=== PATIENT | female | born 1940 | race Caucasian/White ===

== ENCOUNTER 2016-10-01 01:29 | Observation (INO) | payer MEDICARE, OTHER ==
[2016-10-01] VITALS (8 sets, daily range): BP systolic 100–144; BP diastolic 52–82; PULSE 52–88; RESP 16–18; TEMP 98.1–98.5; O2SAT 95–98
[~2016-10-01 01:29] MED LIST: BACL10TA PO; CEFU250T PO; DIFL150T PO; DIPH25TA; LEVO25TA4 PO; LORA-373 PO; MORP1TAB25 PO; NULE0.12 SL; VITA400C28
[2016-10-01] MEDS ORDERED: LEVO75TA3 PO (02:07)
[2016-10-01] MEDS ORDERED: MORP15IN4 (02:07)
[2016-10-01] MEDS ORDERED: LORA1TAB12 PO (02:07)
[2016-10-01] MEDS ORDERED: ONDA1TAB16 (02:07)
[2016-10-01] MEDS ORDERED: NITR0.4S SL (02:07)
[2016-10-01] MEDS ORDERED: RABE1TAB PO (02:08)
[2016-10-01] MEDS ORDERED: DICY10CA12 PO (02:08)
--- NOTE | 2016-10-01 02:13 | PD ---
HPI Chief Complaint: Chest Pain Time Seen by Provider: 01:49 Travel History International Travel<30 days: No Contact w/Intl Traveler<30days: No Traveled to known affect area: No History of Present Illness HPI Patient is a 75-year-old female with history of hyperlipidemia, CHF, [place] 4, hyperlipidemia, chronic back pain, who presents to emergency room for evaluation of chest pain. Patient reports that for the past month, she has been having intermittent chest pain. Patient reports that she noticed this chest pain worse when she is getting radiating to sleep. Patient reports that chest pain is located her left chest, reports that she feels a "thumping sensation" to her left chest, reports that she feels diaphoresis, shortness of breath, symptoms last for a few seconds and then resolve on its own. Patient reports that she has noticed symptoms more frequently tonight, reports that she became concerned as she then began having increased pains to her left shoulder. Reports that she has had history of heart attacks in the past while she was in [place] and had balloon angioplasty, reports that she was concerned that she was having a heart attack today. Patient did call a directory compiler, Dr. Silva for a new patient visit - reports that she cannot be seen until October. Patient at this time reports no chest pain. Patient does report that for the past few days, she has had overall generalized weakness. Denies any fevers or chills. Denies any cough or congestion. No sick contacts. PFSH Past Medical History Cardiovascular Problems: Yes High Cholesterol: Yes Congestive Heart Failure: Yes GERD: Yes Genitourinary: Yes (UTI) Medical other: Yes (morphine pump) ?: Not Tubal Ligation: Yes Past Surgical History Appendectomy: Yes Cardiac Surgery: Yes (balloon plasty) Hysterectomy: Yes Other Surgery: Yes (rectoseal repair) Social History Alcohol Use: No Tobacco Use: No Substance Use: No Allergies-Medications (Allergen,Severity, Reaction): Coded Allergies: Amoxicillin (Verified Allergy, Unknown, 10/01/16) Aspirin (Verified Allergy, Unknown, 10/01/16) Codeine (Verified Allergy, Unknown, 10/01/16) Erythromycin (Verified Allergy, Unknown, 10/01/16) Keflex (Verified Allergy, Unknown, 10/01/16) Levofloxacin (Verified Allergy, Unknown, 10/01/16) Macrobid (Verified Allergy, Unknown, 10/01/16) Nonsteroidal Anti-Inflammatory Agts (Verified Allergy, Unknown, 10/01/16) Sulfa (Verified Allergy, Unknown, 10/01/16) Vancomycin (Verified Allergy, Unknown, 10/01/16) Reported Meds & Prescriptions Reported Meds & Active Scripts Active Reported Rabeprazole (Rabeprazole Sodium) 20 Mg Tab 20 Mg PO DAILY Dicyclomine (Dicyclomine HCl) 10 Mg Cap 10 Mg PO BID Nitrostat SL (Nitroglycerin) 0.4 Mg Subl 0.4 Mg SL DIRECTED PRN 1 tablet under the tongue as needed for chest pain. Repeat every 5 minutes for a total of 3 DOSES or call 911 if NO relief. Ondansetron (Ondansetron HCl) 4 Mg Tab Morphine Sulfate 15 Mg/Ml Inj Levothyroxine (Levothyroxine Sodium) 75 Mcg Tab 75 Mcg PO DAILY Lorazepam 1 Mg Tab 1 Mg PO BID PRN Baclofen 10 Mg Tab 10 Mg PO Q8HR PRN Vitamin D (Cholecalciferol) 400 Unit Cap Cefuroxime (Cefuroxime Axetil) 250 Mg Tab 250 Mg PO BID Review of Systems General / Constitutional: No: Fever Eyes: No: Visual changes HENT: No: Headaches Cardiovascular: Positive: Chest Pain or Discomfort, Tachycardia, Diaphoresis Respiratory: Positive: Shortness of Breath Gastrointestinal: No: Abdominal Pain Genitourinary: No: Dysuria Musculoskeletal: No: Pain Skin: No Rash Neurologic: Positive: Weakness Psychiatric: No: Depression Endocrine: No: Polydipsia Hematologic/Lymphatic: No: Easy Bruising Physical Exam Narrative GENERAL: Mild distress SKIN: Focused skin assessment warm/dry. HEAD: Atraumatic. Normocephalic. EYES: Pupils equal and round. No scleral icterus. No injection or drainage. ENT: No nasal bleeding or discharge. Mucous membranes pink and moist. NECK: Trachea midline. No JVD. CARDIOVASCULAR: Regular rate and rhythm. No murmur appreciated. RESPIRATORY: No accessory muscle use. Clear to auscultation. Breath sounds equal bilaterally. GASTROINTESTINAL: Abdomen soft, non-tender, nondistended. Hepatic and splenic margins not palpable. MUSCULOSKELETAL: No obvious deformities. No clubbing. No cyanosis. No edema. NEUROLOGICAL: Awake and alert. No obvious cranial nerve deficits. Motor grossly within normal limits. Normal speech. PSYCHIATRIC: Anxious mood Data Data Last Documented VS Vital Signs Date Time Temp Pulse Resp B/P Pulse Ox O2 Delivery O2 Flow Rate FiO2 10/01/16 01:32 98.5 88 16 144/82 98 Orders B-Type Natriuretic Peptide (10/01/16 02:03) Ckmb (Isoenzyme) Profile (10/01/16 02:03) Complete Blood Count With Diff (10/01/16 02:03) Comprehensive Metabolic Panel (10/01/16 02:03) Magnesium (Mg) (10/01/16 02:03) Prothrombin Time / Inr (Pt) (10/01/16 02:03) Act Partial Throm Time (Ptt) (10/01/16 02:03) Troponin I (10/01/16 02:03) Lipase (10/01/16 02:03) Chest, Single Ap (10/01/16 02:03) Ecg Monitoring (10/01/16 02:03) Iv Access Insert/Monitor (10/01/16 02:03) Oximetry (10/01/16 02:03) Sodium Chloride 0.9% Flush (Ns Flush) (10/01/16 02:15) Admit Order (Ed Use Only) (10/01/16 03:40) Activity Bed Rest With Brp (10/01/16 03:40) Vital Signs (Adult) Q4H (10/01/16 03:40) Cardiac Rhythm .As Directed (10/01/16 03:40) Notify Dr: Other .PRN (10/01/16 03:40) Notify Parameters (10/01/16 03:40) Resp Oxygen Nasal Cannula (10/01/16 ) Ckmb (Isoenzyme) Profile (10/01/16 05:10) Ckmb (Isoenzyme) Profile (10/01/16 08:10) Troponin I (10/01/16 05:10) Troponin I (10/01/16 08:10) Electrocardiogram (10/01/16 03:40) Electrocardiogram (10/01/16 06:40) ^ Obtain (10/01/16 03:40) Corporate Lawyer / Telemetry YECENIA.Q8H (10/01/16 03:40) Labs Laboratory Tests Test 10/01/16 02:10 White Blood Count 6.6 TH/MM3 Red Blood Count 4.43 MIL/MM3 Hemoglobin 14.3 GM/DL Hematocrit 41.8 % Mean Corpuscular Volume 94.3 FL Mean Corpuscular Hemoglobin 32.2 PG Mean Corpuscular Hemoglobin 34.2 % Concent Red Cell Distribution Width 12.0 % Platelet Count 132 TH/MM3 Mean Platelet Volume 8.2 FL Neutrophils (%) (Auto) 58.7 % Lymphocytes (%) (Auto) 29.9 % Monocytes (%) (Auto) 7.2 % Eosinophils (%) (Auto) 3.5 % Basophils (%) (Auto) 0.7 % Neutrophils # (Auto) 3.9 TH/MM3 Lymphocytes # (Auto) 2.0 TH/MM3 Monocytes # (Auto) 0.5 TH/MM3 Eosinophils # (Auto) 0.2 TH/MM3 Basophils # (Auto) 0.0 TH/MM3 CBC Comment DIFF FINAL Differential Comment Prothrombin Time 11.5 SEC Prothromb Time International 1.0 RATIO Ratio Activated Partial 26.5 SEC Thromboplast Time Sodium Level 142 MEQ/L Potassium Level 4.1 MEQ/L Chloride Level 107 MEQ/L Carbon Dioxide Level 25.3 MEQ/L Anion Gap 10 MEQ/L Blood Urea Nitrogen 17 MG/DL Creatinine 0.84 MG/DL Estimat Glomerular Filtration 66 ML/MIN Rate Random Glucose 130 MG/DL Calcium Level 9.0 MG/DL Magnesium Level 1.8 MG/DL Total Bilirubin 0.6 MG/DL Aspartate Amino Transf 32 U/L (AST/SGOT) Alanine Aminotransferase 24 U/L (ALT/SGPT) Alkaline Phosphatase 90 U/L Total Creatine Kinase 80 U/L Troponin I LESS THAN 0.02 NG/ML B-Type Natriuretic Peptide 94 PG/ML Total Protein 7.6 GM/DL Albumin 4.1 GM/DL Lipase 112 U/L [facility] Medical Decision Making Medical Screen Exam Complete: Yes Emergency Medical Condition: Yes Interpretation(s) EKG at 0150: NSR at 76bpm, qt/qtc: 373/403, no acute st or t wave changes Vital Signs Date Time Temp Pulse Resp B/P Pulse Ox O2 Delivery O2 Flow Rate FiO2 10/01/16 01:32 98.5 88 16 144/82 98 Differential Diagnosis ACS, arrhythmia, electrolyte abnormality, pneumothorax Narrative Course Patient is a 75-year-old female who presents to emergency room for evaluation of chest pain. Patient has been having intermittent chest pain for the past month, reports that symptoms are worsened night, she has had left-sided chest pain which feels like a "pounding to my chest" with associated shortness of breath, diaphoresis, pains to her left shoulder. Patient reports that symptoms only last for a few seconds and resolve on its own. Reports that she became concerned today as her blood pressure was elevated at 185/90 act her symptoms, except that these symptoms occurred twice tonight and try to follow-up with a directory compiler as outpatient but unable to get an appointment until October. Patient concerned as she has history of myocardial infarctions 4 in [place] in the past. Patient was placed on a cardiac catheterization technologist upon arrival to the emergency room. EKG obtained, patient with no acute ST or T-wave changes, lab work including cardiac enzymes and x-ray chest ordered. Patient with no chest pain at this time, plan to monitor patient. Laboratory Tests Test 10/01/16 02:10 White Blood Count 6.6 TH/MM3 (4.0-11.0) Red Blood Count 4.43 MIL/MM3 (4.00-5.30) Hemoglobin 14.3 GM/DL (11.6-15.3) Hematocrit 41.8 % (35.0-46.0) Mean Corpuscular Volume 94.3 FL (80.0-100.0) Mean Corpuscular Hemoglobin 32.2 PG (27.0-34.0) Mean Corpuscular Hemoglobin 34.2 % Concent (32.0-36.0) Red Cell Distribution Width 12.0 % (11.6-17.2) Platelet Count 132 TH/MM3 (150-450) Mean Platelet Volume 8.2 FL (7.0-11.0) Neutrophils (%) (Auto) 58.7 % (16.0-70.0) Lymphocytes (%) (Auto) 29.9 % (9.0-44.0) Monocytes (%) (Auto) 7.2 % (0.0-8.0) Eosinophils (%) (Auto) 3.5 % (0.0-4.0) Basophils (%) (Auto) 0.7 % (0.0-2.0) Neutrophils # (Auto) 3.9 TH/MM3 (1.8-7.7) Lymphocytes # (Auto) 2.0 TH/MM3 (1.0-4.8) Monocytes # (Auto) 0.5 TH/MM3 (0-0.9) Eosinophils # (Auto) 0.2 TH/MM3 (0-0.4) Basophils # (Auto) 0.0 TH/MM3 (0-0.2) CBC Comment DIFF FINAL Differential Comment Prothrombin Time 11.5 SEC (9.8-11.6) Prothromb Time International 1.0 RATIO Ratio Activated Partial 26.5 SEC Thromboplast Time (24.3-30.1) Sodium Level 142 MEQ/L (136-145) Potassium Level 4.1 MEQ/L (3.5-5.1) Chloride Level 107 MEQ/L (98-107) Carbon Dioxide Level 25.3 MEQ/L (21.0-32.0) Anion Gap 10 MEQ/L (5-15) Blood Urea Nitrogen 17 MG/DL (7-18) Creatinine 0.84 MG/DL (0.50-1.00) Estimat Glomerular Filtration 66 ML/MIN (>89) Rate Random Glucose 130 MG/DL (74-106) Calcium Level 9.0 MG/DL (8.5-10.1) Magnesium Level 1.8 MG/DL (1.5-2.5) Total Bilirubin 0.6 MG/DL (0.2-1.0) Aspartate Amino Transf 32 U/L (15-37) (AST/SGOT) Alanine Aminotransferase 24 U/L (10-53) (ALT/SGPT) Alkaline Phosphatase 90 U/L (45-117) Total Creatine Kinase 80 U/L (26-192) Troponin I LESS THAN 0.02 NG/ML (0.02-0.05) B-Type Natriuretic Peptide 94 PG/ML (0-100) Total Protein 7.6 GM/DL (6.4-8.2) Albumin 4.1 GM/DL (3.4-5.0) Lipase 112 U/L (73-393) Last Impressions Chest X-Ray 10/01/16 0203 Signed Impressions: Service Date/Time: Saturday, October 01, 2016 02:06 - CONCLUSION: No acute cardiopulmonary disease. Messi Alicia MD Patient with no chest pain at this time, I reviewed all labs and studies with her in detail, patient will be observed in chest pain unit. Diagnosis Primary Impression: Chest pain Qualified Code: R07.9 - Chest pain, unspecified type Admitting Information Admitting Physician Requests: Nisa Eli DO October 01, 2016 02:13
[2016-10-01] MEDS ORDERED: SODIUM CHLORIDE 0.9% FLUSH 10 ML FLUSH IVF PRN (02:15)
[2016-10-01 02:35] LABS: AUTOMATED NEUTROPHIL # 3.9 TH/MM3 (1.8-7.7); BASOPHIL % 0.7 % (0.0-2.0); EOSINOPHIL # 0.2 TH/MM3 (0-0.4); EOSINOPHIL % 3.5 % (0.0-4.0); HEMATOCRIT 41.8 % (35.0-46.0); HEMO FLAGS DIFF FINAL; LYMPH % 29.9 % (9.0-44.0); MEAN CELL VOLUME 94.3 FL (80.0-100.0); MEAN CORPUSCULAR HEMOGLOBIN 32.2 PG (27.0-34.0); MEAN CORPUSCULAR HGB CONC 34.2 % (32.0-36.0); MONO % 7.2 % (0.0-8.0); NEUT % 58.7 % (16.0-70.0); PLATELET COUNT 132 TH/MM3 (150-450); RED BLOOD COUNT 4.43 MIL/MM3 (4.00-5.30); WHITE BLOOD COUNT 6.6 TH/MM3 (4.0-11.0)
--- NOTE | 2016-10-01 02:35 | RADRPT ---
EXAM DATE/TIME: 10/01/2016 02:06 [facility] COMPARISON: No previous studies available for comparison. INDICATIONS : Chest pain. MEDICAL HISTORY : None. SURGICAL HISTORY : None. ENCOUNTER: Initial ACUITY: 1 day PAIN SCORE: 7/10 LOCATION: Bilateral chest FINDINGS: The lungs are clear without infiltrate, nodule, or mass. There is no appreciable pleural effusion fo r technique. Heart and mediastinum are unremarkable. CONCLUSION: No acute cardiopulmonary disease. Messi Alicia MD on October 01, 2016 at 2:33 Board Certified Radiologist. This report was verified electronically.
[2016-10-01 02:37] LABS: APTT (PATIENT) 26.5 SEC (24.3-30.1); PROTHROMBIN TIME - PATIENT 11.5 SEC (9.8-11.6)
[2016-10-01 03:09] LABS: ALKALINE PHOSPHATASE 90 U/L (45-117); ALT (GPT) 24 U/L (10-53); ANION GAP 10 MEQ/L (5-15); AST (GOT) 32 U/L (15-37); BICARBONATE 25.3 MEQ/L (21.0-32.0); BLOOD UREA NITROGEN 17 MG/DL (7-18); CHLORIDE 107 MEQ/L (98-107); GLOMERULAR FILTRATION RATE 66 ML/MIN (>89); MAGNESIUM 1.8 MG/DL (1.5-2.5); POTASSIUM 4.1 MEQ/L (3.5-5.1); SODIUM (NA) 142 MEQ/L (136-145); TOTAL BILIRUBIN ADULT 0.6 MG/DL (0.2-1.0)
[2016-10-01 03:16] LABS: CREATINE KINASE 80 U/L (26-192)
[2016-10-01 06:17] LABS: CREATINE KINASE 50 U/L (26-192)
[2016-10-01 09:02] LABS: CREATINE KINASE 44 U/L (26-192)
--- NOTE | 2016-10-01 09:52 | HHI.HP ---
HPI Primary Care Physician Sudhakar Olguin MD Chief Complaint Chest pain History of Present Illness 75-year-old female with past medical history of hyperlipidemia, coronary artery disease, congestive heart failure presents to emergency room for further evaluation of chest pain. Onset 2/3 weeks. Location left anterior chest. Characterized as intermittent chest pain characterized as "pounding." No radiation of pain. Endorses she "always has chest pain daily." Decided to come to the emergency room for evaluation of chest pain has she noticed her blood pressure has been elevated in the 180s/90s and chest pounding more pronounced. Review of Systems General: No fatigue,weakness, fever, chills, or recent illness HEENT: Complains of daily headache over the past 3 weeks that resolves with Tylenol. No vision changes, no nasal congestion or drainage, no dysphasia CV: As stated above. No current chest pain, pressure, or palpitations. No dizziness RESP: No SOB, cough, wheeze, or recent URI. GI: No nausea, vomiting, bowel changes, diarrhea, constipation, pain, distention , melena, blood in the stool. No unintentional weight gain or weight loss. Endorses bowel and bladder incontinence for many years. : No dysuria, urgency, frequency, hematuria, endorses urinary incontinence, history of "multiple bladder infections." EXT: No lower leg edema, no paraesthesias MS: Chronic back discomfort, morphine pump and use. No change in ROM, ambulates with a walker. Lives independently NEURO: No change in memory, dizziness, difficulty with balance, LOC, motor/ sensory deficits PSYCH: No anxiety, depression SKIN: No rashes, no concerning lesions Past Family Social History Allergies: Coded Allergies: Amoxicillin (Verified Allergy, Unknown, 10/01/16) Aspirin (Verified Allergy, Unknown, 10/01/16) Codeine (Verified Allergy, Unknown, 10/01/16) Erythromycin (Verified Allergy, Unknown, 10/01/16) Keflex (Verified Allergy, Unknown, 10/01/16) Levofloxacin (Verified Allergy, Unknown, 10/01/16) Macrobid (Verified Allergy, Unknown, 10/01/16) Nonsteroidal Anti-Inflammatory Agts (Verified Allergy, Unknown, 10/01/16) Sulfa (Verified Allergy, Unknown, 10/01/16) Vancomycin (Verified Allergy, Unknown, 5/24/17) Past Medical History Hyperlipidemia, congestive heart failure chronic back pain, hypothyroidism, bladder infections, also porosis, coronary artery disease, [place] 4 Past Surgical History Appendectomy, hysterectomy Reported Medications Active Reported Rabeprazole (Rabeprazole Sodium) 20 Mg Tab 20 Mg PO DAILY Dicyclomine (Dicyclomine HCl) 10 Mg Cap 10 Mg PO BID Nitrostat SL (Nitroglycerin) 0.4 Mg Subl 0.4 Mg SL DIRECTED PRN 1 tablet under the tongue as needed for chest pain. Repeat every 5 minutes for a total of 3 DOSES or call 911 if NO relief. Ondansetron (Ondansetron HCl) 4 Mg Tab Morphine Sulfate 15 Mg/Ml Inj Levothyroxine (Levothyroxine Sodium) 75 Mcg Tab 75 Mcg PO DAILY Lorazepam 1 Mg Tab 1 Mg PO BID PRN Baclofen 10 Mg Tab 10 Mg PO Q8HR PRN Vitamin D (Cholecalciferol) 400 Unit Cap Cefuroxime (Cefuroxime Axetil) 250 Mg Tab 250 Mg PO BID Active Ordered Medications Current Medications Medications (Trade) Dose Ordered Sig/Collin Route Start Time Stop Time Status Last Admin (NS Flush) 2 ml UNSCH PRN IVF 10/01/16 02:15 (NS Flush) 2 ml BID IV FLUSH 10/01/16 21:00 UNV (Tylenol) 500 mg Q4H PRN PO 10/01/16 10:00 UNV (Zofran Inj) 4 mg Q6H PRN IV 10/01/16 10:00 UNV (Nitrostat Sl) 0.4 mg Q5M PRN SL 10/01/16 10:00 UNV Family History Noncontributory for early onset cardiovascular disease Social History Known hyperlipidemia. No known hypertension or diabetes. Lifelong nonsmoker. Denies any alcohol or illegal drug use. Lives independently, ambulates with a walker. Past cardiac testing No recent stress testing. Establishing with a local auto garage mechanic, Dr. Silva appointment is in October. Endorses most recent cardiac catheterization completed 2014 while living in [place]. Believes an intervention was completed however no stent placed. Physical Exam Vital Signs Vital Signs Date Time Temp Pulse Resp B/P Pulse Ox O2 Delivery O2 Flow Rate FiO2 10/01/16 09:40 98 10/01/16 07:27 98.2 57 16 119/55 96 10/01/16 04:04 97 10/01/16 01:32 98.5 88 16 144/82 98 Physical Exam GENERAL: Alert WN, WD, NAD, pleasant, talkative, elderly female HEAD: NC, AT EYES: Sclera clear, conjunctiva without injection ENT: Mucous membranes pink and moist NECK: Supple, no masses, trachea midline CV: RRR, without murmur, rub, gallop, no JVD, S1-S2 no S3-S4. RESP: Clear lungs throughout bilateral, no crackles, wheeze, rhonchi, symmetrical chest rise, nonlabored, able to speak in full sentences ABD: Soft, NT, ND, no masses, positive bowel tones EXT: Pulses +24, no dependent edema MS: Normal tone 4 extremities, nontender, no obvious deformities, full range of motion NEURO: CN II through CN XII grossly intact, motor strength 5/5, gait WNL PSYCH: A+O 3, pleasant affect, appropriate speech, appropriate mood and affect , insight and judgment SKIN: Normal turgor, normal texture, no lesions, no rashes, brisk cap refill, even hair distribution Laboratory Laboratory Tests Test 10/01/16 10/01/16 10/01/16 02:10 05:07 08:00 White Blood Count 6.6 Red Blood Count 4.43 Hemoglobin 14.3 Hematocrit 41.8 Mean Corpuscular Volume 94.3 Mean Corpuscular Hemoglobin 32.2 Mean Corpuscular Hemoglobin 34.2 Concent Red Cell Distribution Width 12.0 Platelet Count 132 Mean Platelet Volume 8.2 Neutrophils (%) (Auto) 58.7 Lymphocytes (%) (Auto) 29.9 Monocytes (%) (Auto) 7.2 Eosinophils (%) (Auto) 3.5 Basophils (%) (Auto) 0.7 Neutrophils # (Auto) 3.9 Lymphocytes # (Auto) 2.0 Monocytes # (Auto) 0.5 Eosinophils # (Auto) 0.2 Basophils # (Auto) 0.0 CBC Comment DIFF FINAL Differential Comment Prothrombin Time 11.5 Prothromb Time International 1.0 Ratio Activated Partial 26.5 Thromboplast Time Sodium Level 142 Potassium Level 4.1 Chloride Level 107 Carbon Dioxide Level 25.3 Anion Gap 10 Blood Urea Nitrogen 17 Creatinine 0.84 Estimat Glomerular Filtration 66 Rate Random Glucose 130 Calcium Level 9.0 Magnesium Level 1.8 Total Bilirubin 0.6 Aspartate Amino Transf 32 (AST/SGOT) Alanine Aminotransferase 24 (ALT/SGPT) Alkaline Phosphatase 90 Total Creatine Kinase 80 50 44 Troponin I LESS THAN 0.02 LESS THAN 0.02 LESS THAN 0.02 B-Type Natriuretic Peptide 94 Total Protein 7.6 Albumin 4.1 Lipase 112 Result Diagram: 10/01/1620910/01/16209 Imaging Last Impressions Chest X-Ray 10/01/16202 Signed Impressions: Service Date/Time: Saturday, October 01, 2016 02:06 - CONCLUSION: No acute cardiopulmonary disease. Messi Alicia MD Course EKGs 3 EKGs normal sinus rhythm, sinus arrhythmia, no ST or T-segment changes Assessment and Plan Assessment and Plan #1 Chest painadmitted to chest pain center. Ruled out with 3 sets of cardiac enzymes, EKGs, and monitored overnight. Seen and evaluated by Dr. Fahad Lind. Chemical stress test ordered. If stress test unremarkable will later discharged this afternoon. Patient agreeable to plan of care. #2 Chronic paincontinue morphine pump, baclofen #3 Hypothyroidismcontinue levothyroxine #4 Hypertensioncontinue to monitor, patient has been normotensive Megan Reyna October 01, 2016 09:52
[2016-10-01] MEDS ORDERED: ACETAMINOPHEN 500 MG CPLT PO PRN (10:00)
[2016-10-01] MEDS ORDERED: ONDANSETRON HCL 4 MG/2 ML VIAL IV PRN (10:00)
[2016-10-01] MEDS ORDERED: NITROGLYCERIN 0.4 MG SL 25 TABS/BTL SL PRN (10:00)
[2016-10-01] MEDS ORDERED: BACLOFEN 10 MG TAB PO PRN (10:00)
[2016-10-01] MEDS ORDERED: DICYCLOMINE HCL 10 MG CAP PO SCH (10:00)
[2016-10-01] MEDS ORDERED: LEVOTHYROXINE SODIUM 75 MCG TAB PO SCH (10:00)
[2016-10-01] MEDS ORDERED: PANTOPRAZOLE SOD 20 MG DELAYED RELEASE TAB PO SCH (10:45)
--- NOTE | 2016-10-01 13:40 | EKG ---
Date Performed: 10/01/2016 Time Performed: 06:08:29 PTAGE: 75 years EKG: SINUS BRADYCARDIA WITH FREQUENT SUPRAVENTRICULAR PREMATURE COMPLEXES LOW QRS VOLTAGE IN PRE CORDIAL LEADS ABNORMAL RHYTHM ECG NO PREVIOUS TRACING DOCTOR: Fahad Lind Interpretating Date/Time 10/01/2016 13:39:42
--- NOTE | 2016-10-01 13:41 | EKG ---
Date Performed: 10/01/2016 Time Performed: 01:50:22 PTAGE: 75 years EKG: Sinus rhythm WITH OCCASIONAL SUPRAVENTRICULAR PREMATURE COMPLEXES BORDERLINE ECG NO PREVIOUS TRACING DOCTOR: Fahad Lind Interpretating Date/Time 10/01/2016 13:40:54
[2016-10-01] MEDS ORDERED: REGADENOSON INJ 0.4 MG/5 ML SYR ONE (13:44)
--- NOTE | 2016-10-01 15:01 | RADRPT ---
EXAM DATE/TIME: 10/01/2016 13:12 [facility] COMPARISON: No previous studies available for comparison. INDICATIONS : Left sided chest pain or 1 month. Angina. Myocardial infarction. DOSE: 25.7 mCi Tc99m Myoview at stress. 8.3 mCi Tc99m Myoview at rest. 0.4 mg Lexiscan STRESS SYMPTOMS: Asymptomatic. EJECTION FRACTION: 69% MEDICAL HISTORY : Congestive hearrt failure. Hypertension. Hypercholesterolemia. SURGICAL HISTORY : Tubal ligation. Hysterectomy. Appendectomy. ENCOUNTER: Initial ACUITY: 1 month PAIN SCALE: 2/10 LOCATION: Left chest TECHNIQUE: The patient underwent pharmacologic stress with infusion of prescribed dose. Continuous ECG tracing was monitored during stress. Gated SPECT imaging was performed after stress and conventional SPECT i maging was performed at rest. The examination was performed on a SPECT/CT scanner, both attenuation and non-corrected datasets were reviewed. FINDINGS: DISTRIBUTION: The maximum perfused segment at stress is in the septal wall. PERFUSION STUDY: The pattern of perfusion at stress is within normal limits. GATED STUDY: There is intact wall motion and thickening without hypokinetic or dyskinetic segments. CONCLUSION: Normal examination. RISK CATEGORY: Low (<1% Annual Mortality Rate) Steven Cameron MD on October 01, 2016 at 14:55 Board Certified Radiologist. This report was verified electronically.
--- NOTE | 2016-10-01 15:23 | HHI.DCPOC ---
Discharge Care Plan Diagnosis: (1) Atypical chest pain Goals to Promote Your Health * To prevent worsening of your condition and complications * To maintain your health at the optimal level Directions to Meet Your Goals Take your medications as prescribed Follow your dietary instruction Follow activity as directed Keep your appointments as scheduled Take your immunizations and boosters as scheduled If your symptoms worsen call your PCP, if no PCP go to Urgent Care Center or Emergency Room Smoking is Dangerous to Your Health. Avoid second hand smoke Call the 24-hour hour crisis hotline for domestic abuse at Megan Reyna October 01, 2016 15:23
--- NOTE | 2016-10-01 19:24 | EKG ---
Date Performed: 10/01/2016 Time Performed: 08:07:55 PTAGE: 75 years EKG: SINUS BRADYCARDIA BORDERLINE ECG PREVIOUS TRACING : 10/01/2016 06.08 Compared to prior tracing no significant change DOCTOR: Laci Hsu Interpretating Date/Time 10/01/2016 19:22:44
[2016-10-01] MEDS ORDERED: SODIUM CHLORIDE 0.9% FLUSH 10 ML FLUSH IV FLUSH SCH (21:00)
--- NOTE | 2016-10-03 12:58 | TR ---
Date Performed: 10/01/2016 Time Performed: 14:02:39 DOCTOR: Fahad Lind DRUG LIST: CLINICAL HISTORY: ANGINA REASON FOR TEST: Angina REASON FOR ENDING: OBSERVATION: CONCLUSION: Lexiscan stress test was performed under standard four minute protocol. Radionucl[place] e was injected one minute prior to ending the test. No electrocardiographic abormalities were present to suggest ischemia. Nuclear imaging and interpretation are pending. COMMENTS:
== END 2016-10-01 18:11 | disposition home or self-care (01) ==
LOC: NEPC 01:29 → NEDA 03:43 → NEPGCP 06:13
PROVIDERS: ADMIT Internal Medicine Interventional Cardiology; ATTEND Internal Medicine Interventional Cardiology
DX: R07.89 Other chest pain (principal); I25.10 Atherosclerotic heart disease of native coronary artery without angina pectoris; I11.0 Hypertensive heart disease with heart failure; I50.9 Heart failure, unspecified; E03.9 Hypothyroidism, unspecified; G89.29 Other chronic pain; M54.9 Dorsalgia, unspecified; I25.2 Old myocardial infarction; E78.5 Hyperlipidemia, unspecified; K21.9 Gastro-esophageal reflux disease without esophagitis; Z88.6 Allergy status to analgesic agent; Z88.1 Allergy status to other antibiotic agents; Z88.5 Allergy status to narcotic agent; Z88.2 Allergy status to sulfonamides; Z88.8 Allergy status to other drugs, medicaments and biological substances
CPT/HCPCS: 71010; 78452; 80053; 82550; 83690; 83735; 83880; 84484; 85025; 85610; 85730; 93005; 93017; 99285; A9502; G0378; J2785